=== PATIENT | female | born 1940 | race Caucasian/White ===

== ENCOUNTER 2025-06-17 07:45 | Outpatient (CLI) | payer OTHER, SELFPAY ==
[2025-06-17 08:33] VITALS: BP 185/71; PULSE 66; RESP 16; TEMP 36.9; O2SAT 97
[2025-06-17 08:39] VITALS: BP 166/88
[2025-06-17 08:46] VITALS: BP 192/96; PULSE 53; RESP 18; O2SAT 98
[2025-06-17 08:51] VITALS: PULSE 63; RESP 18; O2SAT 97
[2025-06-17 08:55] VITALS: BP 160/78; PULSE 68; RESP 16; O2SAT 98
[2025-06-17] MEDS: LIDOCAINE 1% (PF) 5 ML INJ (08:55)
--- NOTE | 2025-06-17 12:24 | PM.PROC.IR.1 ---
Date/Time/Diagnoses Date of procedure: 06/17/25 Time of procedure: 08:30 Pre-procedure diagnosis: Lumbosacral radiculopathy Post-procedure diagnosis: same Procedure Notes Procedure: Interlaminar epidural steroid injection L5-S1 Indications: Lumbosacral radiculopathy Physician: Cy Cazares Total sedation minutes: 0 Complications: none Procedure in detail & Post-procedure care: Patient is here for the planned procedure today as noted. No significant change since the last office visit. For additional clinical scenario please see those office notes. Focused exam: Vital signs reviewed as charted on intake. Gen: Well developed. No acute distress. CV: RRR, no M/R/G Chest: Non-labored breathing, CTAB. Psych: Alert and well-oriented. Mood/Affect: normal. Patient suitable for the planned procedure today: Yes === The following procedure was performed in the office today: Lumbar Epidural Steroid Injection with fluoroscopic guidance - Interlaminar approach (61534) Levels Treated: [L5-S1] Approach: interlaminar Soft tissue: [1% lidocaine 2 mL] Test dose: [1% lidocaine 1 mL] Injectate: 0.75 mL of Depo-Medrol (80mg/mL) in 1.25 mL 1% lidocaine and 1 mL normal saline Fluoroscopy Agent: Isovue 300-M 1.5 mL Notes: She is now reporting [id number]-right pain. Left paramedian approach utilized. 4.5 in 20 gauge Touhy needle utilized and just adequate. If repeat injection warranted in this area, recommend 6 in Touhy needle. Preprocedure pain rated 3/10, postprocedure pain rated 5/10. She acknowledges difficulty understanding and utilizing the numerical pain scale. Procedure: After discussing the risks, benefits, and alternatives to the procedure, the patient expressed understanding and wished to proceed. The risks include but are not limited to infection, allergic reaction, nerve damage, stroke, paralysis, epidural hematoma, syncope, headache, respiratory or cardiac arrest, spinal cord injury, and scar formation. Informed consent was obtained and all patient questions were answered. The patient was brought to the procedure suite and placed in the prone position. A pre-procedural pause was conducted to verify: correct patient identity, procedure to be performed and as applicable, correct side and site, correct patient position, and any special requirements. Using a paramedian approach from the side noted above, the region overlying the target was localized under fluoroscopic visualization and the soft tissues overlying this structure were infiltrated with the anesthetic listed above. With fluoroscopic guidance, a #20 gauge Tuohy needle (unless otherwise noted) was inserted into the epidural space using a paramedian approach. The epidural space was localized utilizing intermittent multiplanar fluoroscopic guidance and loss of resistance technique. After negative aspiration, the contrast noted above was injected into the epidural space and the flow of contrast was observed, confirming epidural spread without evidence of intravascular or intrathecal spread. Multi-planar radiographs were obtained for documentation purposes. A test dose of lidocaine was injected into the above noted epidural space, and the patient was observed for 30-60 seconds. No sensory deficits were reported and normal lower extremity motor function was noted. Subsequently, the injectate as noted above was administered into the level noted above. The patient tolerated the procedure well and was discharged after an appropriate period of observation. If there are any complications, the patient was instructed to call us. The patient is to follow-up with the requesting provider in 2-3 weeks. This note was compiled using voice recognition software and therefore may contain typos. Please contact the author with any questions or concerns.
== END 2025-06-17 09:10 | disposition home or self-care (01) ==
LOC: RAD 07:47
PROVIDERS: PCP Nurse Practitioner; Referring Provider Physical Medicine & Rehabilitation; Visit Provider Physical Medicine & Rehabilitation
DX: M54.17 Radiculopathy, lumbosacral region (principal)
CPT/HCPCS: 62323; J1010

== ENCOUNTER → 2025-07-30 11:35 | Outpatient (CLI) | payer OTHER, SELFPAY ==
--- NOTE | 2025-07-30 11:37 | DI.RAD.S_ITS ---
PROCEDURE: XR SHOULDER LT MIN 2V INDICATIONS: LEFT SHOULDER PAIN TECHNIQUE: 3 views of the shoulder were acquired. COMPARISON: None. FINDINGS: Bones: No fractures or dislocations. No suspicious bony lesions. Visualized ribs appear intact. There are advanced degenerative changes involving the acromioclavicular and glenohumeral joints. Coracoclavicular and acromioclavicular intervals are maintained. Soft tissues: No suspicious soft tissue calcifications. 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 No acute fracture or dislocation. No acute bony abnormality. Dictated by: Andrés De Anda M.D. on 07/31/2025 at 17:29 Approved by: Andrés De Anda M.D. on 07/31/2025 at 17:35
--- NOTE | 2025-07-30 11:37 | DI.RAD.S_ITS ---
PROCEDURE: XR THORACIC SPINE 3V INDICATIONS: RIB PAIN TECHNIQUE: 3 views of the thoracic spine were acquired. COMPARISON: None. FINDINGS: Bones: No fractures or dislocations. No suspicious bony lesions. 12 pairs of ribs are noted, and appear intact where visualized. There is dextrocurvature of the upper thoracic spine with reciprocal levocurvature of the lower thoracic spine. Moderate multilevel spondylosis of the imaged spine. No acute compression fractures. Soft tissues: No paravertebral stripe thickening. IMPRESSION: Thoracic spine without acute osseous abnormalities. Moderate multilevel thoracic spondylosis. Dictated by: Andrés De Anda M.D. on 07/31/2025 at 13:55 Approved by: Andrés De Anda M.D. on 07/31/2025 at 13:56
--- NOTE | 2025-07-30 11:37 | DI.RAD.S_ITS ---
PROCEDURE: XR CERVICAL SPINE 4V OR 5V INDICATIONS: NECK AND SHOULDER PAIN TECHNIQUE: 5 views of the cervical spine were acquired. COMPARISON: None. FINDINGS: Bones: No fractures or dislocations to the T4 level. No suspicious bony lesions. There is decreased range of motion between flexion and extension, with preserved normal bony alignment. There is minimal anterolisthesis of C5 on C6. Moderate multilevel cervical spondylosis. Soft tissues: Prevertebral soft tissues are normal in thickness. IMPRESSION: Cervical spine without acute osseous abnormalities. Minimal anterolisthesis of C5 on C6 with diminished range of motion on flexion/extension views. No evidence for instability. Dictated by: Andrés De Anda M.D. on 07/31/2025 at 17:36 Approved by: Andrés De Anda M.D. on 07/31/2025 at 17:37
== END ==
PROVIDERS: PCP Nurse Practitioner; Referring Provider Physical Medicine & Rehabilitation; Visit Provider Physical Medicine & Rehabilitation
DX: M47.812 Spondylosis without myelopathy or radiculopathy, cervical region (principal); M47.814 Spondylosis without myelopathy or radiculopathy, thoracic region; M54.2 Cervicalgia; M25.512 Pain in left shoulder; R07.89 Other chest pain
CPT/HCPCS: 72050; 72072; 73030